=== PATIENT | female | born 1975 | race Caucasian/White ===

== ENCOUNTER 2021-04-11 07:33 | Inpatient (IN) | payer MEDICARE, MEDICAID, SELFPAY ==
[2021-04-11 07:46] VITALS: BMI 21.9
[2021-04-11] MEDS: baclofen 10 mg Tablet PO (10:58)
[2021-04-11] MEDS: lurasidone 20 mg Tablet PO (10:58)
[2021-04-11] MEDS: spironolactone 25 mg Tablet PO (10:58)
[2021-04-11] MEDS: fluoxetine 20 mg Capsule 40 MG PO (10:58)
[2021-04-11] MEDS: lisinopril 20 mg Tablet PO (10:58)
[2021-04-11] MEDS: dicyclomine 20 mg Tablet PO ×2 (10:58→17:11)
[2021-04-11] MEDS: levothyroxine 100 mcg Tablet PO (10:58)
[2021-04-11] MEDS: prochlorperazine 10 mg Tablet PO ×2 (11:09→17:11)
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
[2021-04-11] MEDS: acetaminophen 325 mg Tablet 650 MG PO ×2 (12:32→18:22)
[2021-04-11 14:00] VITALS: BP 97/65; PULSE 84; RESP 18; TEMP 36.7; O2SAT 95
[2021-04-11] MEDS: nicotine 2 mg Gum BUCCAL ×3 (17:11→20:58)
[2021-04-11] MEDS: blistex lip oint 7 gm Tube 1 APPLIC TOPICAL (17:12)
[2021-04-11] MEDS: lurasidone 20 mg Tablet 40 MG PO (17:12)
[2021-04-11] MEDS: LIPASE PROTEASE AMYLASE 1 EACH PO ×2 (17:25→21:00)
[2021-04-11] MEDS: TRAMadol 50 mg Tablet PO (19:56)
[2021-04-11] MEDS: ondansetron 4 MG Tablet PO (21:00)
[2021-04-11] MEDS: trazodone 50 mg Tablet PO (21:04)
[2021-04-11] MEDS: OLANZapine 5 mg ODT PO (21:04)
[2021-04-11] MEDS: LORazepam 2 mg/mL INJ 1 mL IM (21:51)
[2021-04-11] MEDS: diphenhydrAMINE 50 mg/mL SDV 1mL IM (21:53)
[2021-04-11] MEDS: haloperidol inj 5 mg/mL INJ 1 mL IM (21:53)
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
[2021-04-11 22:00] VITALS: BP 122/80; PULSE 86; RESP 18; TEMP 37; O2SAT 95
--- NOTE | 2021-04-12 00:55 | PC.NURSE ---
Waste late entry 0058 Handed medication to pt and pt dropped the pill!! Wasted 5mg of Zyprexa Zydis.
--- NOTE | 2021-04-12 01:51 | PC.NURSE ---
PRN late entry 19:56 Administered Tramadol 50mg for pt c/o pain in right arm, will continue to monitor pt until end of my shift. 20:30 Followup Pt was very agitated and stated that her pain wasn't touched by the medication. Pt received a B52 shortly after this due to increased agression and escalating behaviors. Will continue to monitor pt until the end of my shift.
[2021-04-12] MEDS: TRAMadol 50 mg Tablet PO ×2 (04:09→11:32)
[2021-04-12] MEDS: hyDROXYzine 25 mg Capsule 50 MG PO ×2 (04:10→14:34)
--- NOTE | 2021-04-12 04:40 | PC.NURSE ---
PRN 04:10 Administered Tramadol 50mg pt c/o pain in arm of 10, will continue to monitor pt until end of shift. 04:09 Administered Vistaril 50mg pt was anxious, will continue to monitor pt until end of shift. 04:39 Followup on both PRN MEDS, pt is sleeping in room, will continue to monitor pt until end of shift.
[2021-04-12 06:00] VITALS: RESP 16
[2021-04-12] MEDS: nicotine 2 mg Gum BUCCAL ×5 (06:43→18:03)
[2021-04-12] MEDS: lisinopril 20 mg Tablet PO (09:40)
[2021-04-12] MEDS: LIPASE PROTEASE AMYLASE 1 EACH PO ×3 (09:40→16:56)
[2021-04-12] MEDS: levothyroxine 100 mcg Tablet PO (09:40)
[2021-04-12] MEDS: acetaminophen 325 mg Tablet 650 MG PO (09:41)
[2021-04-12] MEDS: fluoxetine 20 mg Capsule 40 MG PO (09:42)
[2021-04-12] MEDS: spironolactone 25 mg Tablet PO (09:42)
[2021-04-12] MEDS: dicyclomine 20 mg Tablet PO ×2 (09:42→17:00)
[2021-04-12] MEDS: baclofen 10 mg Tablet PO (09:42)
[2021-04-12] MEDS: prochlorperazine 10 mg Tablet PO ×2 (09:42→17:00)
--- NOTE | 2021-04-12 12:40 | PM.NPN ---
Mental Status Exam MSE Comments: Lying in her bed but eventually sits up for interview, calm, polite, interactive, wearing hospital scrubs, good eye contact Psychomotor activity is neither increased nor decreased, no agitation Speech is much more organized today, normal rate, normal volume, fair articulation, not pressured I feel okay, full range of affect, not labile Alert and oriented to person, type of place Memory and concentration are somewhat improved, occasionally requires redirection during interview Intellectual functioning appears to be average based on vocabulary Thought process, much more organized, linear, no flight of ideas Thought content, does not communicate any mormon themed delusions but continues to have some overvalued ideas, no hallucinations, no suicidal or homicidal ideation Insight and judgment appear to be limited Vitals/I&O/Wt Last Vital Signs Temp 98.6 F 04/11/21 22:00 Pulse 86 04/11/21 22:00 Resp 16 04/12/21 06:00 BP 122/80 04/11/21 22:00 Pulse Ox 95 04/11/21 22:00 Weight last 48 hrs Weight 58.06 kg A&P Assessment and plan (1) Psychotic disorder: Status: Acute Qualifiers: Psychosis type: unspecified psychosis type Qualified Code(s): F29 - Unspecified psychosis not due to a substance or known physiological condition Additional A&P Information Appears to have much more organization in her thoughts today but continues to have some overvalued ideas, mormon theme ideation, denies any mood symptoms, denies any suicidal ideation INCREASE to lurasidone 60 mg daily targeting psychotic symptoms, mood Involuntary Hold Information 96 Hour Hold: 96 Hour Involuntary Admission: No Attestations NPU Medical Necessity Statement*: Continues to require psychiatric hospitalization for medication stabilization, coordination for safe discharge Coding Level of Care Code Acute Configuration Management Architect for [facility] Fwd Diagnoses Psychotic disorder F29 Psychosis type: unspecified psychosis type
[2021-04-12 14:00] VITALS: BP 122/80; PULSE 86; RESP 16; TEMP 37; O2SAT 95
[2021-04-12] MEDS: OLANZapine 5 mg ODT PO (16:02)
[2021-04-12] MEDS: ondansetron 4 MG Tablet PO (16:55)
[2021-04-12] MEDS: simethicone 80 mg Chew PO (16:55)
[2021-04-12] MEDS: lurasidone 20 mg Tablet 60 MG PO (16:57)
[2021-04-12] MEDS: diphenhydrAMINE 50 mg/mL SDV 1mL IM (17:36)
[2021-04-12] MEDS: LORazepam 2 mg/mL INJ 1 mL IM (17:37)
[2021-04-12] MEDS: haloperidol inj 5 mg/mL INJ 1 mL IM (17:37)
[2021-04-12 18:52] VITALS: BP 91/64; PULSE 92; RESP 18; TEMP 36.5; O2SAT 98
[2021-04-12 21:26] VITALS: RESP 16
[2021-04-13] MEDS: TRAMadol 50 mg Tablet PO ×3 (05:34→17:44)
[2021-04-13 06:00] VITALS: BP 111/74; PULSE 83; RESP 18; TEMP 37.2; O2SAT 95
--- NOTE | 2021-04-13 07:12 | PC.NURSE ---
prn 0534 Administered Tramadol 50mg for c/o pain, will continue to monitor 601 follow up with pt and no change in pain level
[2021-04-13] MEDS: dicyclomine 20 mg Tablet PO ×2 (08:29→19:37)
[2021-04-13] MEDS: baclofen 10 mg Tablet PO (08:29)
[2021-04-13] MEDS: fluoxetine 20 mg Capsule 40 MG PO (08:29)
[2021-04-13] MEDS: spironolactone 25 mg Tablet PO (08:29)
[2021-04-13] MEDS: prochlorperazine 10 mg Tablet PO ×2 (08:29→19:37)
[2021-04-13] MEDS: LIPASE PROTEASE AMYLASE 1 EACH PO ×4 (08:29→19:37)
[2021-04-13] MEDS: levothyroxine 100 mcg Tablet PO (08:29)
[2021-04-13] MEDS: lisinopril 20 mg Tablet PO (08:29)
[2021-04-13] MEDS: nicotine 2 mg Gum BUCCAL ×4 (08:50→17:43)
--- NOTE | 2021-04-13 12:13 | P.PN_ITS ---
Subjective NPU Subjective: Interval history: Patient continues to make bizarre statements at times but is much more organized Denies any interval mood symptoms, denies any depressed symptoms, denies any suicidal ideation Denies any auditory or visual hallucinations Continues to be compliant with medication, denies any medication side effects Mental Status Exam MSE Comments: Standing next to nurses station, somewhat odd behavior intermittently smiling inappropriately and making bizarre statements but polite and cooperative with interview, good eye contact Psychomotor activity is neither increased nor decreased, no agitation Speech is normal rate, normal volume, fair articulation, not pressured I feel good, full range of affect, smiles inappropriately at times during interview, not labile Alert and oriented to person, type of place Memory and concentration are somewhat improved, occasionally requires redirection during interview Thought process, more organized, linear, no flight of ideas Thought content, occasional delusional statements, does not appear to be attending to any internal stimuli, no suicidal or homicidal ideation Insight and judgment appear to be limited Vitals/I&O/Wt Last Vital Signs Temp 99.0 F 04/13/21 06:00 Pulse 83 04/13/21 06:00 Resp 18 04/13/21 06:00 BP 111/74 04/13/21 06:00 Pulse Ox 95 04/13/21 06:00 A&P Assessment and plan (1) Psychotic disorder: Status: Acute Qualifiers: Psychosis type: unspecified psychosis type Qualified Code(s): F29 - Unspecified psychosis not due to a substance or known physiological condition Additional A&P Information More organized, improving CONTINUE current medication, continue to monitor Involuntary Hold Information 96 Hour Hold: 96 Hour Involuntary Admission: No Attestations NPU Medical Necessity Statement*: Continues to require psychiatric hospitalization for psychosis, medication stabilization Coding Level of Care Code Acute Optical Glass Sawyer for [facility] [place] Diagnoses Psychotic disorder F29 Psychosis type: unspecified psychosis type
[2021-04-13 14:00] VITALS: BP 125/78; PULSE 88; RESP 17; TEMP 37.1; O2SAT 96
[2021-04-13] MEDS: OLANZapine 5 mg ODT PO (15:51)
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
[2021-04-13] MEDS: lurasidone 20 mg Tablet 60 MG PO (16:29)
[2021-04-13] MEDS: mirtazapine 15 mg Tablet PO (19:37)
[2021-04-13 20:00] VITALS: BP 105/77; PULSE 89; RESP 16; TEMP 36.8; O2SAT 99
[2021-04-13] MEDS: acetaminophen 325 mg Tablet 650 MG PO (23:48)
[2021-04-14] MEDS: nicotine 2 mg Gum BUCCAL ×6 (05:00→23:01)
[2021-04-14 06:00] VITALS: BP 86/58; PULSE 76; RESP 18; TEMP 36.4; O2SAT 96
[2021-04-14] MEDS: lisinopril 20 mg Tablet PO (07:58)
[2021-04-14] MEDS: baclofen 10 mg Tablet PO (07:58)
[2021-04-14] MEDS: fluoxetine 20 mg Capsule 40 MG PO (07:58)
[2021-04-14] MEDS: levothyroxine 100 mcg Tablet PO (07:59)
[2021-04-14] MEDS: dicyclomine 20 mg Tablet PO ×2 (07:59→19:51)
[2021-04-14] MEDS: spironolactone 25 mg Tablet PO (07:59)
[2021-04-14] MEDS: LIPASE PROTEASE AMYLASE 1 EACH PO ×4 (08:00→19:51)
[2021-04-14] MEDS: prochlorperazine 10 mg Tablet PO ×2 (08:03→19:50)
[2021-04-14] MEDS: TRAMadol 50 mg Tablet PO ×2 (08:03→20:30)
[2021-04-14] MEDS: OLANZapine 5 mg ODT PO ×2 (12:13→23:17)
--- NOTE | 2021-04-14 12:13 | PM.NPN ---
Subjective NPU Subjective: Interval history: Patient not demonstrating any sustained euphoric or elevated mood but continues to laugh inappropriately while making congregational themed statements and gestures towards the ceiling Patient wonders up and down hallways making nonsensical statements Denies any mood symptoms, denies any depressed symptoms, denies any suicidal ideation Denies any auditory or visual hallucinations Compliant with medication, denies any medication side effects Reports having a good appetite Mental Status Exam MSE Comments: Patient intermittently sitting on her bed then standing and making gestures towards the ceiling with congregational themed statements, requires frequent redirection but is cooperative with interview for brief periods, fair eye contact, laughing inappropriately Psychomotor activity is neither increased nor decreased, no agitation Speech is normal rate, normal volume, fair articulation, not pressured I feel great, full range of affect, smiles and laughs inappropriately at times during interview, not labile Alert and oriented to person, type of place Memory and concentration are somewhat improved, occasionally requires redirection during interview Thought process, disorganized, circumstantial and occasionally tangential requiring redirection, no flight of ideas Thought content, delusional statements, does not appear to be attending to any internal stimuli, no suicidal or homicidal ideation Insight and judgment appear to be limited Vitals/I&O/Wt Last Vital Signs Temp 97.5 F L 04/14/21 06:00 Pulse 76 04/14/21 06:00 Resp 18 04/14/21 06:00 BP 86/58 04/14/21 06:00 Pulse Ox 96 04/14/21 06:00 A&P Assessment and plan (1) Psychotic disorder: Status: Acute Qualifiers: Psychosis type: unspecified psychosis type Qualified Code(s): F29 - Unspecified psychosis not due to a substance or known physiological condition Additional A&P Information Patient continues to be disorganized in thoughts, congregational theme delusions INCREASE to lurasidone 80 mg every evening with food targeting psychotic symptoms Involuntary Hold Information 96 Hour Hold: 96 Hour Involuntary Admission: No Attestations NPU Medical Necessity Statement*: Continues to require psychiatric hospitalization for medication stabilization, coordination for safe discharge Coding Level of Care Code Acute Line Crew Supervisor for [facility]odeaux Diagnoses Psychotic disorder F29 Psychosis type: unspecified psychosis type
--- NOTE | 2021-04-14 12:15 | PC.NURSE ---
Addendum entered by Stephanie Swanson LPN 04/14/21 14:24: prn med not yet effective pt cont to be agitated at times, intrusive with staff and other patients, staff has to redirect often Original Note: PRN ZYPREXA ZYDIS 5 MG GIVEN PO PER PT C/O PSYCHOSIS/AGITATION. PT VOICE ESCALATING AT THE DESK, GETTING INTO OTHER PATIENT'S PERSONAL SPACE, WALKED UP TO AND GOT IN THE FACE OF ANOTHER FEMALE PATIENT, CALLING HER A CHICKEN. STAFF ATTEMPTS TO REDIRECT WITH LITTLE SUCCESS. WILL CONT TO MONITOR
[2021-04-14 14:00] VITALS: BP 127/84; PULSE 94; RESP 17; TEMP 36.2; O2SAT 97
[2021-04-14] MEDS: lurasidone 80 mg Tablet PO (16:33)
[2021-04-14] MEDS: haloperidol 5 mg Tablet PO (17:56)
[2021-04-14] MEDS: hyDROXYzine 25 mg Capsule 50 MG PO (17:56)
--- NOTE | 2021-04-14 17:56 | PC.NURSE ---
PRN Haldol and Vistaril Patient continues to yell out confucianist comments, nonsensical speaking. Patient continuously pressing the call light, code blue light, and emergency button. Upon entering to check on patient and cancel lights, patient blocked the exit and would not allow this nurse to leave room. Patient asking when she can be discharged, patient instructed to ask physician tomorrow. Patient then rolled her eyes and became confrontational. This nurse alerted CHERRIE Brown who entered room. Patient then moved out of doorway for this nurse to exit. Patient then offered medication to help relax and patient agreed. Patient given 5mg PO Haldol and 50mg PO Vistaril. Will monitor for effectiveness.
[2021-04-14 19:21] VITALS: BP 135/86; PULSE 84; RESP 24; TEMP 37.1; O2SAT 93
[2021-04-14] MEDS: trazodone 50 mg Tablet PO (19:51)
[2021-04-14] MEDS: mirtazapine 15 mg Tablet PO (19:51)
[2021-04-14] MEDS: docusate sodium 100 mg Capsule PO (19:51)
--- NOTE | 2021-04-14 20:00 | PC.NURSE ---
PT REQUESTING SLEEPING PILL , TRAZODONE 50MG PO GIVEN WITH NIGHT MEDS.
[2021-04-14] MEDS: acetaminophen 325 mg Tablet 650 MG PO (23:00)
[2021-04-14] MEDS: simethicone 80 mg Chew PO (23:23)
--- NOTE | 2021-04-14 23:24 | PC.NURSE ---
PT CAME TO THE DESK REQUESTING SOMETHING FOR HER ACID REFLUX, MILOCON TAB GIVEN. PT UP PACING IN HALLWAY, CONFUSED.
--- NOTE | 2021-04-14 23:27 | PC.NURSE ---
ZYPREXA 5MG PO GIVEN TO PT FOR NOTED INCREASED DELUSIONS AND ANXIETY.
--- NOTE | 2021-04-15 01:00 | PC.NURSE ---
PT FINALLY RESTING QUIETLY WITH BOTH EYES CLOSED, SNORING.
[2021-04-15] MEDS: ondansetron 4 MG Tablet PO (01:52)
--- NOTE | 2021-04-15 01:56 | PC.NURSE ---
Patient is up walking back and forth between her room and the nurses station asking for medications for her acid reflux. Medication given per patient request. Patient has returned to her room at this time.
--- NOTE | 2021-04-15 01:59 | PC.NURSE ---
Patient at the nurses station requesting bathing products so that she can take a shower. Patient is pleasant with nursing staff.
[2021-04-15] MEDS: haloperidol 5 mg Tablet PO (02:28)
[2021-04-15] MEDS: hyDROXYzine 25 mg Capsule 50 MG PO (02:28)
--- NOTE | 2021-04-15 02:28 | PC.NURSE ---
Patient at the nurses station asking for more medication. Patient has requested multiple times for gas reflux medication.
[2021-04-15] MEDS: TRAMadol 50 mg Tablet PO ×3 (02:41→20:33)
[2021-04-15 06:00] VITALS: BP 94/59; PULSE 80; RESP 17; TEMP 36.8; O2SAT 95
[2021-04-15] MEDS: LIPASE PROTEASE AMYLASE 1 EACH PO ×4 (07:38→20:34)
[2021-04-15] MEDS: levothyroxine 100 mcg Tablet PO (07:38)
[2021-04-15] MEDS: baclofen 10 mg Tablet PO (07:39)
[2021-04-15] MEDS: lisinopril 20 mg Tablet PO (07:39)
[2021-04-15] MEDS: spironolactone 25 mg Tablet PO (07:39)
[2021-04-15] MEDS: prochlorperazine 10 mg Tablet PO ×2 (07:39→20:35)
[2021-04-15] MEDS: dicyclomine 20 mg Tablet PO ×2 (07:40→20:33)
[2021-04-15] MEDS: fluoxetine 20 mg Capsule 40 MG PO (07:40)
[2021-04-15] MEDS: nicotine 2 mg Gum BUCCAL ×2 (10:28→12:32)
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
[2021-04-15 14:00] VITALS: BP 96/68; PULSE 90; RESP 18; TEMP 37.2; O2SAT 97
[2021-04-15] MEDS: OLANZapine 5 mg ODT PO (15:14)
--- NOTE | 2021-04-15 15:14 | PC.NURSE ---
PRN ZYPREXA ZYDIS 5 MG GIVEN PO PER PT C/O STATED AGITATION. PT PACING HALLWAYS, ARMS CROSSED, IRRITABLE AFFECT NOTED. WILL CONT TO MONITOR
[2021-04-15] MEDS: lurasidone 80 mg Tablet 120 MG PO (16:33)
[2021-04-15 20:27] VITALS: BP 114/79; PULSE 92; RESP 17; TEMP 36.8; O2SAT 97
[2021-04-15] MEDS: mirtazapine 15 mg Tablet PO (20:34)
--- NOTE | 2021-04-15 20:43 | PC.NURSE ---
Patient resting in her room at this time. Patient has been cooperative with nursing staff.
[2021-04-16] MEDS: acetaminophen 325 mg Tablet 650 MG PO ×2 (01:11→20:49)
--- NOTE | 2021-04-16 01:12 | PC.NURSE ---
PRN Tylenol Patient ambulated to the nurses station requesting medication for her muscle aches. Patient explained muscle aches 2/10 on pain scale. PRN Tylenol administered. Patient tolerated well and returned to her room.
[2021-04-16] MEDS: TRAMadol 50 mg Tablet PO ×3 (03:20→16:21)
[2021-04-16 06:00] VITALS: BP 102/68; PULSE 87; RESP 18; TEMP 36.8; O2SAT 96
[2021-04-16] MEDS: LIPASE PROTEASE AMYLASE 1 EACH PO ×4 (08:26→20:40)
[2021-04-16] MEDS: simethicone 80 mg Chew PO (08:27)
[2021-04-16] MEDS: docusate sodium 100 mg Capsule PO (08:27)
[2021-04-16] MEDS: fluoxetine 20 mg Capsule 40 MG PO (08:29)
[2021-04-16] MEDS: lisinopril 20 mg Tablet PO (08:30)
[2021-04-16] MEDS: dicyclomine 20 mg Tablet PO ×2 (08:30→20:49)
[2021-04-16] MEDS: baclofen 10 mg Tablet PO (08:31)
[2021-04-16] MEDS: spironolactone 25 mg Tablet PO (08:31)
[2021-04-16] MEDS: levothyroxine 100 mcg Tablet PO (08:31)
[2021-04-16] MEDS: benztropine 1 mg Tablet PO (08:31)
[2021-04-16] MEDS: prochlorperazine 10 mg Tablet PO ×2 (09:40→20:49)
--- NOTE | 2021-04-16 09:48 | PC.NURSE ---
PRN 0830 Administered Tramadol 50mg for pt c/o pain in right arm. 901 follow up, pt sitting in room no complaints
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
--- NOTE | 2021-04-16 10:30 | DCPLANNER ---
IMM not completed due to pt in NPU with confusion.
[2021-04-16 14:00] VITALS: BP 99/76; PULSE 72; RESP 18; TEMP 36.8; O2SAT 97
[2021-04-16] MEDS: lurasidone 80 mg Tablet 120 MG PO (16:17)
--- NOTE | 2021-04-16 16:31 | PC.NURSE ---
prn 1621 Administered Tramadol 50mg for pt c/o of pain, will continue to monitor pt until the end of my shift.
[2021-04-16] MEDS: OLANZapine 10 mg TABLET PO (16:50)
[2021-04-16] MEDS: hyDROXYzine 25 mg Capsule 50 MG PO (20:41)
--- NOTE | 2021-04-16 20:50 | PC.NURSE ---
PRN MEDICATIONS: PATIENT WAS COMPLAINING OF RIGHT FOOT PAIN WHILE PACING THE HALLS. PATIENT IS MAKING JUDAISM STATEMENTS CONSTANTLY. STAFF GAVE PRN VISTARIL AND TYLENOL. PATIENT TOOK MEDICATIONS WITH NO ISSUES AND CONTINUED TO AMBULATE THE KUHN.
[2021-04-16 21:30] VITALS: BP 120/74; PULSE 108; RESP 24; TEMP 36.6; O2SAT 94
[2021-04-16] MEDS: mirtazapine 15 mg Tablet PO (21:42)
[2021-04-17] MEDS: TRAMadol 50 mg Tablet PO (01:11)
[2021-04-17] MEDS: OLANZapine 5 mg ODT PO ×2 (01:12→14:36)
--- NOTE | 2021-04-17 01:15 | PC.NURSE ---
PRN MEDICATION: PATIENT WAS COMPLAINING OF PAIN IN RIGHT ELBOW AND AGAIN IN THE FOOT. PATIENT IS ALSO ANXIOUSLY PACING UP AND DOWN THE HALLWAY STOPPING AT NURSES STATION WINDOW AND PREACHING TO STAFF . PATIENT CONTINUES TO GO IN AND OUT OF ROOMS OTHER THAN HER OWN STRIPPING BEDS AND REMOVING LINENS AND PILLOWS. STAFF HAS REDIRECTED MULTIPLE TIMES WITH NO SUCCESS. THIS NURSE ADMINISTERED ZYPREXA TO HELP WITH HER HALLUCINATIONS AND DELUSIONS THAT SHE STATES IS MESSAGES FROM GOD THAT SHE MUST SHARE WITH STAFF, AND [facility] AND [facility] WAS GIVEN TO HELP WITH THE PAIN IN HER ELBOW AND FOOT. THIS NURSE WILL CONTINUE TO MONITOR UNTIL THE END OF MY SHIFT.
[2021-04-17] MEDS: haloperidol 5 mg Tablet PO (01:31)
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
[2021-04-17] MEDS: simethicone 80 mg Chew PO (02:38)
--- NOTE | 2021-04-17 03:58 | PC.NURSE ---
PRN MEDICATION: PATIENT WAS COMPLAINING OF PAIN IN RIGHT ELBOW AND AGAIN IN THE FOOT. PATIENT IS ALSO ANXIOUSLY PACING UP AND DOWN THE HALLWAY STOPPING AT NURSES STATION WINDOW AND PREACHING TO STAFF . PATIENT CONTINUES TO GO IN AND OUT OF ROOMS OTHER THAN HER OWN STRIPPING BEDS AND REMOVING LINENS AND PILLOWS. STAFF HAS REDIRECTED MULTIPLE TIMES WITH NO SUCCESS. THIS NURSE ADMINISTERED ZYPREXA TO HELP WITH HER HALLUCINATIONS AND DELUSIONS THAT SHE STATES IS MESSAGES FROM GOD THAT SHE MUST SHARE WITH STAFF, AND [facility] AND [facility] WAS GIVEN TO HELP WITH THE PAIN IN HER ELBOW AND FOOT. THIS NURSE WILL CONTINUE TO MONITOR UNTIL THE END OF MY SHIFT.
--- NOTE | 2021-04-17 04:10 | PC.NURSE ---
PATIENT UPDATE: PATIENT CONTINUES TO GO IN AND OUT OF ROOMS DOWN KUHN. HAS BEEN REDIRECTED MULTIPLE TIMES THAT SHE CAN NOT GO INTO OTHER PATIENTS ROOMS WELL NEEDS TO STAY OUT OF THE EMPTY ROOMS DUE TO HER UNMAKING THE BEDS. PATIENT CONTINUES TO PACE UP AND DOWN HALLWAY WHILE ATTEMPTING TO RECITE BIBLE VERSES AND DELIVER THE WORD OF GOD. PATIENT HAS ASKED TO USE THE PHONE AFTER HOURS TO CALL HER GIRLFRIEND AND WAS EDUCATED ON PHONE HOURS AND TOLD SHE WOULD BE ABLE TO MAKE PHONE CALL DURING APPROVED TIMES FOR PHONE USE. PATIENT ARGUED WITH STAFF THAT FRIEND WAS AWAKE AND WOULD NOT BE BUGGED BY A CALL AT 0400. STAFF REITERATED PHONE RULES AND ASKED PATIENT TO RETIRE TO HER ROOM AND ATTEMPT TO REST. PATIENT STATED SHE WANTED THE DOCTOR CALLED TO GET HER A SWEATER. WHEN TOLD THAT WE DO NOT CALL THE DOCTOR TO ASK HIM TO PURCHASE HER A SWEATER. SHE CONTINUES TO WALK HALLWAY WITH A BLANKET AROUND HER EVEN WHEN STATING SHE IS NOT COLD.
[2021-04-17 06:00] VITALS: BP 137/94; PULSE 97; RESP 20; TEMP 36.9; O2SAT 99
[2021-04-17] MEDS: baclofen 10 mg Tablet PO (08:47)
[2021-04-17] MEDS: fluoxetine 20 mg Capsule 40 MG PO (08:47)
[2021-04-17] MEDS: levothyroxine 100 mcg Tablet PO (08:47)
[2021-04-17] MEDS: lisinopril 20 mg Tablet PO (08:48)
[2021-04-17] MEDS: prochlorperazine 10 mg Tablet PO ×2 (08:48→20:09)
[2021-04-17] MEDS: dicyclomine 20 mg Tablet PO ×2 (08:48→20:09)
[2021-04-17] MEDS: LIPASE PROTEASE AMYLASE 1 EACH PO ×4 (08:48→20:09)
[2021-04-17] MEDS: spironolactone 25 mg Tablet PO (08:48)
[2021-04-17] MEDS: lurasidone 80 mg Tablet 120 MG PO ×2 (09:35→16:46)
--- NOTE | 2021-04-17 13:01 | PM.NPN ---
Subjective NPU Subjective: Interval history: Continues to make nonsensical statements with synagogue themed delusions Mostly wandering unit hallway Denies any auditory or visual hallucinations Denies any suicidal ideation, denies any depressive symptoms Per staff report, concerns about not taking her Latuda after tablet was found Mental Status Exam MSE Comments: Standing in the unit hallway, disheveled, disorganized, appropriately dressed in hospital scrubs Psychomotor activity is neither increased nor decreased, no agitation Speech is normal rate although occasionally speaking in a nonsensical manner, normal volume, fair articulation, not pressured I feel great, full range of affect, not labile Alert and oriented to person, place, time, but not situation Memory and concentration are fair, occasionally requires redirection during interview Thought process, somewhat disorganized, circumstantial with looseness of associations Thought content, delusional statements, does not appear to be attending to any internal stimuli, no suicidal or homicidal ideation Insight and judgment appear to be limited Vitals/I&O/Wt Last Vital Signs Temp 98.4 F 04/17/21 06:00 Pulse 97 04/17/21 06:00 Resp 20 H 04/17/21 06:00 BP 137/94 04/17/21 06:00 Pulse Ox 99 04/17/21 06:00 A&P Assessment and plan (1) Psychotic disorder: Status: Acute Qualifiers: Psychosis type: unspecified psychosis type Qualified Code(s): F29 - Unspecified psychosis not due to a substance or known physiological condition Additional A&P Information Continues to be disorganized, concerns about not taking her medication, delusional CONTINUE current medication while observed, continue to monitor Involuntary Hold Information 96 Hour Hold: 96 Hour Involuntary Admission: No Attestations NPU Medical Necessity Statement*: Continues to require psychiatric hospitalization for medication stabilization Coding Level of Care Code Acute Health Sciences Dean for Myra Thibodeaux Diagnoses Psychotic disorder F29 Psychosis type: unspecified psychosis type
[2021-04-17 14:00] VITALS: BP 97/68; PULSE 105; RESP 18; TEMP 36.7; O2SAT 94
[2021-04-17] MEDS: acetaminophen 325 mg Tablet 650 MG PO ×2 (14:36→20:59)
[2021-04-17] MEDS: ondansetron 4 MG Tablet PO (14:36)
[2021-04-17] MEDS: nicotine 2 mg Gum BUCCAL ×2 (16:21→20:59)
--- NOTE | 2021-04-17 17:08 | PC.NURSE ---
Patient is aggravated wanting something for pain and that she needs something to help her shit . Patient has been pressing the code blue button and all other call light buttons. When nursing staff respond to patient she starts cussing stating I need something to help me shit and I am hurting and need a Morphine drip . Patient is now sitting in front of the nursing station.
[2021-04-17] MEDS: OLANZapine 10 mg ODT PO (17:37)
--- NOTE | 2021-04-17 18:31 | PC.NURSE ---
prn 1436 administered Zofran 4mg for feeling nauseous, Zyprexa 5mg for anxiety and stress, Tylenol 650mg for pain, will follow up with pt within the hour. 1506 Follow Up pt was calm and pain had subsided for now, no c/o being nauseous
--- NOTE | 2021-04-17 18:35 | PC.NURSE ---
Pt has been very needy and up at the nurses desk alot this shift, asking for several medications. Pt has been naked on two occasions this shift and asked to please wear clothing while in the hospital. Cussing at staff at times, redirected back to her room. Pt has been wandering into other pt's rooms praying loudly over them while they are sleeping, staff redirected SI back to her own room. PT has been bed hopping, just randomly changing rooms, and also torn of ID bracelet. Will continue to monitor pt.
[2021-04-17] MEDS: mirtazapine 15 mg Tablet PO (20:09)
[2021-04-17] MEDS: hyDROXYzine 25 mg Capsule 50 MG PO (20:58)
[2021-04-17 21:32] VITALS: BP 112/79; PULSE 96; RESP 18; TEMP 36.8; O2SAT 97
--- NOTE | 2021-04-17 22:12 | PC.NURSE ---
Vistaril 50 mg po given at 2057 for complaint of anxiety. At this time resting in bed.
[2021-04-18 06:00] VITALS: RESP 16
[2021-04-18] MEDS: LIPASE PROTEASE AMYLASE 1 EACH PO ×4 (07:33→21:40)
[2021-04-18] MEDS: docusate sodium 100 mg Capsule PO ×2 (08:40→21:42)
[2021-04-18] MEDS: spironolactone 25 mg Tablet PO (08:40)
[2021-04-18] MEDS: prochlorperazine 10 mg Tablet PO ×2 (08:40→21:43)
[2021-04-18] MEDS: levothyroxine 100 mcg Tablet PO (08:40)
[2021-04-18] MEDS: fluoxetine 20 mg Capsule 40 MG PO (08:40)
[2021-04-18] MEDS: dicyclomine 20 mg Tablet PO ×2 (08:40→21:43)
[2021-04-18] MEDS: lisinopril 20 mg Tablet PO (08:40)
[2021-04-18] MEDS: baclofen 10 mg Tablet PO (08:40)
--- NOTE | 2021-04-18 10:02 | DCPLANNER ---
IMM not completed with pt due to pt confusion.
[2021-04-18] MEDS: acetaminophen 325 mg Tablet 650 MG PO ×2 (10:15→19:58)
[2021-04-18] MEDS: OLANZapine 10 mg TABLET PO (10:16)
[2021-04-18] MEDS: nicotine 2 mg Gum BUCCAL ×3 (11:23→19:59)
--- NOTE | 2021-04-18 11:47 | P.PN_ITS ---
Subjective NPU Subjective: Interval history: Continues to have hyper baptist delusions, intrusive, wandering behavior, going into other patient's rooms Patient continues to speak nonsensically with loose associations, calling this interviewer men's golf coach. Patient was questionably compliant with medication and thought to be pocketing but reportedly has been compliant and observed while taking medication Patient denies any auditory or visual destinations Patient reports feeling great and denies any interval depressive symptoms, denies any suicidal ideation Mental Status Exam MSE Comments: Standing in the unit hallway, disheveled, disorganized, appropriately dressed in hospital scrubs Psychomotor activity is neither increased nor decreased, no agitation Speech is normal rate although occasionally speaking in a nonsensical manner, normal volume, fair articulation, not pressured I feel great, full range of affect, somewhat elevated and euphoric, not labile Alert and oriented to person, place, time, but not situation Memory and concentration are fair, occasionally requires redirection during interview Thought process, somewhat disorganized, circumstantial with looseness of associations Thought content, delusional statements, does not appear to be attending to any internal stimuli, no suicidal or homicidal ideation Insight and judgment appear to be limited Vitals/I&O/Wt Last Vital Signs Temp 98.2 F 04/17/21 21:32 Pulse 96 04/17/21 21:32 Resp 16 04/18/21 06:00 BP 112/79 04/17/21 21:32 Pulse Ox 97 04/17/21 21:32 A&P Assessment and plan (1) Psychotic disorder: Status: Acute Qualifiers: Psychosis type: unspecified psychosis type Qualified Code(s): F29 - Unspecified psychosis not due to a substance or known physiological condition Additional A&P Information Patient appears to be elevated and euphoric with nonsensical speech, hyper baptist delusions, intrusive wandering behavior with concerns about self safety and ability to care for herself. Patient does not appear to be responding to maximal dosing of Latuda and would likely benefit from trial of another antipsychotic with possible need for augmenting with a second antipsychotic. INVOLUNTARY hold initiated DISCONTINUE Latuda 120 mg daily START olanzapine 10 mg twice daily targeting mood, psychotic symptoms Continue to provide behavioral redirection for intrusive, wandering behavior Involuntary Hold Information 2 96 Hour Hold: 96 Hour Involuntary Admission: No Attestations NPU Medical Necessity Statement*: Continues to require psychiatric hospitalization for ongoing, refractory psychotic symptoms, medication stabilization Coding Level of Care Code Acute Sewing Machine Maintenance Mechanic for Myra Thibodeaux Diagnoses Psychotic disorder F29 Psychosis type: unspecified psychosis type
[2021-04-18 14:00] VITALS: TEMP 36.2
[2021-04-18] MEDS: simethicone 80 mg Chew PO (15:38)
[2021-04-18] MEDS: OLANZapine 10 mg ODT PO (15:38)
[2021-04-18] MEDS: OLANZapine 10 mg TABLET 20 MG PO (17:28)
[2021-04-18] MEDS: hyDROXYzine 25 mg Capsule 50 MG PO (19:58)
--- NOTE | 2021-04-18 19:59 | PC.NURSE ---
patient requesting something for anxiety given Vistaril 50mg.
[2021-04-18] MEDS: mirtazapine 15 mg Tablet PO (21:43)
[2021-04-18 22:00] VITALS: BP 117/76; PULSE 90; RESP 18; TEMP 36.6; O2SAT 95
[2021-04-18] MEDS: haloperidol 5 mg Tablet PO (22:05)
--- NOTE | 2021-04-18 22:05 | PC.NURSE ---
5mg Haldol given for increased agitation and increased psychosis.
--- NOTE | 2021-04-18 22:06 | PC.NURSE ---
5mg Haldol given for continued agitation and anxiousness.
[2021-04-19 06:00] VITALS: BP 121/84; PULSE 92; RESP 17; TEMP 36.7; O2SAT 97
[2021-04-19] MEDS: levothyroxine 100 mcg Tablet PO (08:14)
[2021-04-19] MEDS: dicyclomine 20 mg Tablet PO ×2 (08:39→21:16)
[2021-04-19] MEDS: prochlorperazine 10 mg Tablet PO ×2 (08:39→21:16)
[2021-04-19] MEDS: fluoxetine 20 mg Capsule 40 MG PO (08:39)
[2021-04-19] MEDS: lisinopril 20 mg Tablet PO (08:40)
[2021-04-19] MEDS: baclofen 10 mg Tablet PO (08:40)
[2021-04-19] MEDS: OLANZapine 10 mg TABLET 20 MG PO ×2 (08:40→17:22)
[2021-04-19] MEDS: spironolactone 25 mg Tablet PO (08:40)
[2021-04-19] MEDS: LIPASE PROTEASE AMYLASE 1 EACH PO ×4 (08:40→21:29)
[2021-04-19] MEDS: nicotine 2 mg Gum BUCCAL ×3 (09:39→18:46)
[2021-04-19] MEDS: OLANZapine 5 mg ODT PO ×2 (10:37→21:16)
[2021-04-19] MEDS: acetaminophen 325 mg Tablet 650 MG PO (10:37)
--- NOTE | 2021-04-19 12:36 | PM.NPN ---
Subjective NPU Subjective: Interval history: Ongoing psychotic behavior making interview difficult with persistent delusions, intrusive behavior, going into other patient's rooms She continues to speak nonsensically with loose associations but denies any interval suicidal ideation or depressive symptoms Reports tolerating medication change well, denies any medication side effects Patient denies any auditory or visual destinations Mental Status Exam MSE Comments: Standing at the nurses station, appropriately groomed and dressed, uncooperative with interview requiring multiple redirections and prompting Psychomotor activity is neither increased nor decreased, no agitation Speech is normal rate but stating nonsensical things, normal volume, fair articulation, not pressured Good, full range of affect, somewhat elevated and euphoric, not labile Alert and oriented to person, place, time, but not situation Memory and concentration are fair, occasionally requires redirection during interview Thought process, disorganized, circumstantial with looseness of associations Thought content, delusional statements, does not appear to be attending to any internal stimuli, no suicidal or homicidal ideation Insight and judgment appear to be limited Vitals/I&O/Wt Last Vital Signs Temp 98.0 F 04/19/21 06:00 Pulse 92 04/19/21 06:00 Resp 17 04/19/21 06:00 BP 121/84 04/19/21 06:00 Pulse Ox 97 04/19/21 06:00 A&P Assessment and plan (1) Psychotic disorder: Status: Acute Qualifiers: Psychosis type: unspecified psychosis type Qualified Code(s): F29 - Unspecified psychosis not due to a substance or known physiological condition Additional A&P Information Ongoing psychotic behavior, delusional, intrusive and wandering CONTINUE current medication, continue to monitor Involuntary Hold Information 96 Hour Hold: 96 Hour Involuntary Admission: No Attestations NPU Medical Necessity Statement*: Continues to require psychiatric hospitalization for medication stabilization Coding Level of Care Code Acute Radiology Specialist for [facility] Diagnoses Psychotic disorder F29 Psychosis type: unspecified psychosis type
[2021-04-19 14:00] VITALS: BP 101/68; BP 121/84; PULSE 84; PULSE 92; RESP 17; RESP 18; TEMP 35.9; TEMP 36.7; O2SAT 97; O2SAT 99
[2021-04-19] MEDS: hyDROXYzine 25 mg Capsule 50 MG PO ×2 (16:15→21:16)
[2021-04-19] MEDS: nicotine 21 mg Patch 1 PATCH TRANSDERMA (16:47)
[2021-04-19] MEDS: docusate sodium 100 mg Capsule PO (16:47)
[2021-04-19 19:41] VITALS: BP 115/80; PULSE 91; RESP 18; TEMP 36.8; O2SAT 98
--- NOTE | 2021-04-19 21:05 | PC.NURSE ---
pt given haldol 5mg po for increased anxiety.
[2021-04-19] MEDS: mirtazapine 15 mg Tablet PO (21:16)
--- NOTE | 2021-04-19 22:00 | PC.NURSE ---
pt resting quietly with both eyes closed
[2021-04-20] MEDS: nicotine 2 mg Gum BUCCAL ×4 (02:33→16:30)
[2021-04-20] MEDS: hyDROXYzine 25 mg Capsule 50 MG PO ×2 (03:39→09:49)
--- NOTE | 2021-04-20 03:40 | PC.NURSE ---
pt noted again to be up at the nurses desk, rambling about why people get , how she is related to one of the staff, and other subjects that don't make since. vistaril 50mg po given for incresed anxiety.
[2021-04-20 06:00] VITALS: RESP 15
[2021-04-20] MEDS: LIPASE PROTEASE AMYLASE 1 EACH PO ×4 (08:58→20:36)
[2021-04-20] MEDS: levothyroxine 100 mcg Tablet PO (08:58)
[2021-04-20] MEDS: spironolactone 25 mg Tablet PO (08:58)
[2021-04-20] MEDS: baclofen 10 mg Tablet PO (08:59)
[2021-04-20] MEDS: lisinopril 20 mg Tablet PO (08:59)
[2021-04-20] MEDS: OLANZapine 10 mg TABLET 20 MG PO ×2 (08:59→17:20)
[2021-04-20] MEDS: dicyclomine 20 mg Tablet PO ×2 (08:59→20:35)
[2021-04-20] MEDS: fluoxetine 20 mg Capsule 40 MG PO (08:59)
[2021-04-20] MEDS: prochlorperazine 10 mg Tablet PO ×2 (09:05→20:35)
[2021-04-20] MEDS: acetaminophen 325 mg Tablet 650 MG PO (09:40)
--- NOTE | 2021-04-20 09:45 | PC.NURSE ---
Patient received PRN Tylenol due to having increased pain in her right arm.
[2021-04-20] MEDS: OLANZapine 5 mg ODT PO ×2 (09:49→20:35)
--- NOTE | 2021-04-20 10:39 | PC.NURSE ---
Addendum entered by Melonie Nguyen RN 04/20/21 14:26: Patient resting in bed at this time. Original Note: Patient is displaying increased in aggression, anger and outbursts. Patient is demanding an endoscopy along with wanting to be transferred to an ER for abdominal/ hernia surgery. Zyprexa and Vistaril given to patient.
[2021-04-20 10:47] LABS: Basophils # 0.1 10^3/uL (0.0-0.1); Eosinophils # 0.1 10^3/uL (0.0-0.8); Eosinophils % 1.6 %; Hematocrit 34.9 % (37.0-47.0); Hemoglobin 12.6 g/dL (11.5-15.3); Lymphocytes # 2.6 10^3/uL (0.8-4.8); Lymphocytes % 29.5 %; Mean Corpuscular HGB Conc 36.1 g/dL (30.0-36.0); Mean Corpuscular Hemoglobin 31.4 pg (28.0-34.0); Mean Platelet Volume 9.3 fL (7.4-10.4); Monocytes # 0.8 10^3/uL (0.2-0.9); Monocytes % 9.4 %; Neutrophils # 5.04 10^3/uL (1.8-7.7); Neutrophils % 58.4 %; Nucleated Red Blood Cells % 0 %; Platelet Count 365 10^3/cmm (130-400); Red Blood Count 4.01 10^6/uL (4.1-5.3); Red Cell Distribution Width 12.3 % (12.1-15.1); White Blood Count 8.6 10^3/uL (4.0-10.0)
[2021-04-20 11:07] LABS: Alanine Aminotransferase 16 U/L (0-33); Albumin Level 4.7 g/dL (3.5-5.2); Alkaline Phosphatase 93 IU/L (35-105); Anion Gap 16.7 (5-19); Aspartate Amino Transferase 22 U/L (0-32); Blood Urea Nitrogen 13 mg/dL (6-20); Calcium 9.3 mg/dL (8.5-10.5); Carbon Dioxide 21 mmol/L (22-29); Chloride 86 mmol/L (98-107); Globulin 2.6 g/dL (1.3-4.6); Glomerular Filtration Rate 90.5 mL/min (90-130); Glucose 108 mg/dL (65-115); Osmolality Calculated 249 mOsm/kg (285-295); Potassium 4.7 mmol/L (3.5-5.1); Total Bilirubin 0.5 mg/dL (0.15-1.2); Total Protein 7.3 g/dL (6.6-8.7)
[2021-04-20] MEDS: nicotine 21 mg Patch 1 PATCH TRANSDERMA (11:19)
[2021-04-20 11:21] LABS: Sodium 119 mmol/L (136-145)
--- NOTE | 2021-04-20 12:03 | PM.NPN ---
Subjective NPU Subjective: Interval history: Patient continues to wander throughout the unit making nonsensical statements as well as confucianist delusions but then continues with loose associations making statements about most anything she observed on the unit or words that are used in conversations Denies any depressive symptoms, denies any suicidal ideation Denies any auditory or visual hallucinations States that her appetite is been good, reports sleeping well Mental Status Exam MSE Comments: Standing in the hallway on the unit, appropriately groomed and dressed, uncooperative, requires prompting Psychomotor activity is neither increased nor decreased, no agitation Speech is normal rate, rambling, normal volume, fair articulation, not pressured I feel great, full range of affect, expansive, not labile Alert and oriented to person, place, time, but not situation Memory and concentration are fair, occasionally requires redirection during interview Thought process, disorganized, circumstantial with looseness of associations Thought content, delusional statements, does not appear to be attending to any internal stimuli, no suicidal or homicidal ideation Insight and judgment appear to be limited Vitals/I&O/Wt Last Vital Signs Temp 98.2 F 04/19/21 19:41 Pulse 91 04/19/21 19:41 Resp 15 04/20/21 06:00 BP 115/80 04/19/21 19:41 Pulse Ox 98 04/19/21 19:41 04/19/21 04/20/21 04/20/21 22:59 06:59 14:59 Intake Total 240 / 240 Balance 240 / 240 Weight last 48 hrs Weight 58.06 kg Data NPU : 04/20/21 10:39 04/20/21 10:39 A&P Assessment and plan (1) Psychotic disorder: Status: Acute Qualifiers: Psychosis type: unspecified psychosis type Qualified Code(s): F29 - Unspecified psychosis not due to a substance or known physiological condition Additional A&P Information Patient with serum sodium of 119, noted to have serum sodium of 133 from transferring emergency department, will continue to monitor CONSULT hospitalist for evaluation, recommendations Originally ordered labs for baseline prior to starting Depakote given worsening manic behavior but will hold until after repeat labs DECREASE fluoxetine to fluoxetine 10 mg daily Involuntary Hold Information 96 Hour Hold: 96 Hour Involuntary Admission: No Attestations NPU Medical Necessity Statement*: Continues to require psychiatric hospitalization for medication stabilization Coding Level of Care Code Acute Coil Winder Hand for Chg Fwd Diagnoses Psychotic disorder F29 Psychosis type: unspecified psychosis type
[2021-04-20 12:30] LABS: Alanine Aminotransferase 16 U/L (0-33); Albumin Level 4.6 g/dL (3.5-5.2); Alkaline Phosphatase 93 IU/L (35-105); Anion Gap 17.5 (5-19); Aspartate Amino Transferase 22 U/L (0-32); Blood Urea Nitrogen 14 mg/dL (6-20); Calcium 9.5 mg/dL (8.5-10.5); Carbon Dioxide 22 mmol/L (22-29); Chloride 86 mmol/L (98-107); Globulin 2.6 g/dL (1.3-4.6); Glomerular Filtration Rate 90.5 mL/min (90-130); Glucose 107 mg/dL (65-115); Osmolality Calculated 253 mOsm/kg (285-295); Potassium 4.5 mmol/L (3.5-5.1); Sodium 121 mmol/L (136-145); Total Bilirubin 0.5 mg/dL (0.15-1.2); Total Protein 7.2 g/dL (6.6-8.7)
[2021-04-20 14:00] VITALS: BP 115/80; PULSE 101; RESP 17; TEMP 36.8; O2SAT 98
--- NOTE | 2021-04-20 17:15 | PC.NURSE ---
Patient at the nurses station requesting something for nausea and heartburn.
[2021-04-20] MEDS: ondansetron 4 MG Tablet PO (17:21)
[2021-04-20] MEDS: simethicone 80 mg Chew PO (17:21)
--- NOTE | 2021-04-20 18:19 | P.CONIM_ITS ---
Providers/Reason For Consult Consulting Physician/Specialty*: Internal medicine Reason for Consult*: Hyponatremia Attending Physician: Cyrus Calvillo DO History of Present Illness History of Present Illness 45 year old female with history of substance use disorder and longstanding psychiatric issues, hypothyroidism, hypertension, currently being managed in NPU for Psychotic disorder: Medicine was consulted as BMP showed: Serum sodium 119, noted to have serum sodium of 133 from transferring emergency department on 04/11. Upon my discussion with the patient: She is complaining of vague abdominal pain, attributing this to her, chronic pancreatitis, denies any other signs of acute hyponatremia deny, muscle cramps, dizziness, nausea, vomiting. BMP reviewed. Review of Systems Const: Denies: fever(s), chills, body aches, change in appetite or diaphoresis Card: Denies: palpitations, edema, swelling of feet/ankles, dyspnea on exertion, orthopnea or leg pain with exertion Resp: Denies: dyspnea, productive cough, wheezing or pain on inspiration : Denies: flank pain Musc: Denies: back pain, extremity pain or extremity swelling Neuro: Denies: headache(s), difficulty walking or confusion Meds/Allergies Home Medications and Allergies Home Medications Medication Instructions Recorded Confirmed Last Taken Type baclofen 10 mg PO DAILY 04/11/21 04/11/21 Unknown History dicyclomine [Bentyl] 20 mg PO BID 04/11/21 04/11/21 Unknown History fluoxetine [Prozac] 40 mg PO DAILY 04/11/21 04/11/21 Unknown History levothyroxine 100 mcg PO DAILY 04/11/21 04/11/21 Unknown History uqqtvg-mqftwtyf-bnilaqb [Creon] 1 cap PO BID 04/11/21 04/11/21 Unknown History lisinopril 20 mg PO DAILY 04/11/21 04/11/21 Unknown History lurasidone [Latuda] 20 mg PO DAILY 04/11/21 04/11/21 Unknown History mirtazapine [Remeron] 15 mg PO DAILY 04/11/21 04/11/21 Unknown History mupirocin [Bactroban] 1 applic TOPICAL BID 04/11/21 04/11/21 Unknown History prochlorperazine maleate 10 mg PO BID 04/11/21 04/11/21 Unknown History [Compazine] simethicone [Gas-X] 80 mg PO DAILY PRN 04/11/21 04/11/21 Unknown History spironolactone 25 mg PO DAILY 04/11/21 04/11/21 Unknown History trazodone 100 mg PO DIRECTED 04/11/21 04/11/21 Unknown History Allergies Allergy/AdvReac Type Severity Reaction Status Date / Time cat dander Allergy Unknown Verified 04/11/21 10:14 gabapentin Allergy Unknown Verified 04/11/21 10:14 pregabalin Allergy Unknown Verified 04/11/21 10:14 Sulfa (Sulfonamide Allergy Unknown Verified 04/11/21 10:13 Antibiotics) Current Medications Current Medications Generic Name Dose Route Start Last Admin Trade Name Freq PRN Reason Stop Dose Admin Acetaminophen 650 mg 04/11/21 09:00 04/20/21 09:40 Acetaminophen 325 Mg Tablet PO 650 mg Q4H PRN Administration MILD PAIN Baclofen 10 mg 04/11/21 11:30 04/20/21 08:59 Baclofen 10 Mg Tablet PO 10 mg DAILY JOSÉ ANTONIO Administration Benztropine Mesylate 1 mg 04/11/21 09:00 04/16/21 08:31 Benztropine 1 Mg Tablet PO 1 mg BID PRN Administration Mild Extrapyramidal symptoms Camphor/Menthol/Phenol 1 applic 04/11/21 09:00 04/11/21 17:12 Blistex Lip Oint 7 Gm Tube TOPICAL 1 applic Q1H PRN Administration DRYNESS Dicyclomine HCl 20 mg 04/13/21 21:00 04/20/21 08:59 Dicyclomine 20 Mg Tablet PO 20 mg 0900,2100 JOSÉ ANTONIO Administration Diphenhydramine HCl 50 mg 04/11/21 09:00 04/11/21 21:53 Diphenhydramine 50 Mg/Ml Sdv 1ml IM 50 mg ONCE PRN Administration Severe Extrapyramidal Symptoms Diphenhydramine HCl 50 mg 04/11/21 09:00 04/12/21 17:36 Diphenhydramine 50 Mg/Ml Sdv 1ml IM 50 mg Q4H PRN Administration Severe Aggression Docusate Sodium 100 mg 04/14/21 19:38 04/19/21 16:47 Docusate Sodium 100 Mg Capsule PO 100 mg BID PRN Administration CONSTIPATION Haloperidol 5 mg 04/11/21 09:00 04/18/21 22:05 Haloperidol 5 Mg Tablet PO 5 mg Q4H PRN Administration AGITATION Haloperidol Lactate 5 mg 04/11/21 09:00 04/12/21 17:37 Haloperidol Inj 5 Mg/Ml Inj 1 Ml IM 5 mg Q4H PRN Administration Severe Aggression Hydroxyzine Pamoate 50 mg 04/11/21 09:00 04/20/21 09:49 Hydroxyzine 25 Mg Capsule PO 50 mg Q6H PRN Administration ANXIETY Levothyroxine Sodium 100 mcg 04/11/21 11:30 04/20/21 08:58 Levothyroxine 100 Mcg Tablet PO 100 mcg DAILY JOSÉ ANTONIO Administration Lisinopril 20 mg 04/11/21 11:30 04/20/21 08:59 Lisinopril 20 Mg Tablet PO 20 mg DAILY JOSÉ ANTONIO Administration Mirtazapine 15 mg 04/11/21 21:00 04/19/21 21:16 Mirtazapine 15 Mg Tablet PO 15 mg BEDTIME JOSÉ ANTONIO Administration Nicotine 1 patch 04/11/21 09:00 04/20/21 11:19 Nicotine 21 Mg Patch TRANSDERMA 1 patch DAILY PRN Administration NICOTINE WITHDRAWAL Nicotine Polacrilex 2 mg 04/11/21 09:00 04/20/21 16:30 Nicotine 2 Mg Gum BUCCAL 2 mg Q2H PRN Administration NICOTINE WITHDRAWAL Non-Formulary Medication 1 cap 04/11/21 17:00 04/20/21 17:20 Gocciw-Cnsvunea-Koqjmzy [Creon] PO 1 cap QID JOSÉ ANTONIO Administration Olanzapine 5 mg 04/11/21 09:00 04/20/21 09:49 Olanzapine 5 Mg Odt PO 5 mg Q4H PRN Administration Agitation/Psychosis Olanzapine 20 mg 04/18/21 18:00 04/20/21 17:20 Olanzapine 10 Mg Tablet PO 20 mg BID JOSÉ ANTONIO Administration Ondansetron HCl 4 mg 04/11/21 09:00 04/20/21 17:21 Ondansetron 4 Mg Tablet PO 4 mg Q6H PRN Administration NAUSEA AND VOMITING Prochlorperazine 10 mg 04/13/21 21:00 04/20/21 09:05 Prochlorperazine 10 Mg Tablet PO 10 mg 0900,2100 JOSÉ ANTONIO Administration Simethicone 80 mg 04/11/21 09:21 04/20/21 17:21 Simethicone 80 Mg Chew PO 80 mg DAILY PRN Administration GAS Spironolactone 25 mg 06/04/21 11:30 04/20/21 08:58 Spironolactone 25 Mg Tablet PO 25 mg DAILY JOSÉ ANTONIO Administration Vitals/I&O/Wt Last Vital Signs Temp 98.2 F 04/20/21 14:00 Pulse 101 H 04/20/21 14:00 Resp 17 04/20/21 14:00 BP 115/80 04/20/21 14:00 Pulse Ox 98 04/20/21 14:00 Weight last 48 hrs Weight 58.06 kg Physical Exam Const: COMMON NORMALS: patient oriented x3 HENMT: COMMON NORMALS: normocephalic HEAD & SCALP: normocephalic Chest: CHEST: Yes Symmetrical chest wall rise Resp: COMMON NORMALS: clear to auscultation bilaterally EFFORT & INSPECTION: Yes symmetric chest movement AUSCULTATION: clear to auscultation bilaterally Cardio: COMMON NORMALS: regular rate, regular rhythm, S1 normal heart sound present, S2 normal heart sound present, No gallops present (Cardio), No murmurs present (Cardio), No rub (Cardio) and Peripheral pulses 2+ throughout RATE: regular rate RHYTHM: regular rhythm HEART SOUNDS: S1 normal heart sound present and S2 normal heart sound present PERIPHERAL PULSES: Peripheral pulses 2+ throughout GI: COMMON NORMALS: Normal to inspection, nondistended, normoactive bowel sounds present, Soft to palpation, non-tender, No hepatosplenomegaly present and no masses AUSCULTATION: Yes normoactive bowel sounds PALPATION: Yes Soft to palpation and Yes No hepatosplenomegaly present RECTAL EXAM: deferred Extremity: COMMON NORMALS: no clubbing, cyanosis or edema and no pedal edema Neuro: COMMON NORMALS: patient oriented x3 A&P Assessment and plan (1) Hyponatremia: Euvolemic asymptomatic hyponatremia: TSH Urine electrolytes Urine osmolality serum osmolality Cortisol Pain control Continue to monitor BMP Q6 H Continue to optimize antipsychotic medication as they can be contributor to hyponatremia. Thanks for consulting medicine will continue to follow. Status: Acute (2) Psychotic disorder: Status: Acute Qualifiers: Psychosis type: unspecified psychosis type Qualified Code(s): F29 - Unspecified psychosis not due to a substance or known physiological condition Consult Attestations Medical Necessity Statement: Per primary team. Coding Level of Care Code Acute Electronic Component Processor for [facility] Fwd Exam Detailed Diagnoses Hyponatremia E87.1 Psychotic disorder F29 Psychosis type: unspecified psychosis type
--- NOTE | 2021-04-20 18:34 | PC.NURSE ---
PATIENT REQUESTING A LAXATIVE. COLACE ADMINISTERED
[2021-04-20] MEDS: docusate sodium 100 mg Capsule PO (18:35)
[2021-04-20 19:54] LABS: Alanine Aminotransferase 15 U/L (0-33); Albumin Level 4.4 g/dL (3.5-5.2); Alkaline Phosphatase 86 IU/L (35-105); Anion Gap 16.3 (5-19); Aspartate Amino Transferase 20 U/L (0-32); Blood Urea Nitrogen 17 mg/dL (6-20); Calcium 8.5 mg/dL (8.5-10.5); Carbon Dioxide 21 mmol/L (22-29); Chloride 86 mmol/L (98-107); Globulin 2.2 g/dL (1.3-4.6); Glomerular Filtration Rate 77.6 mL/min (90-130); Glucose 96 mg/dL (65-115); Osmolality Calculated 249 mOsm/kg (285-295); Potassium 4.3 mmol/L (3.5-5.1); Total Bilirubin 0.4 mg/dL (0.15-1.2); Total Protein 6.6 g/dL (6.6-8.7)
[2021-04-20 19:58] LABS: Sodium 119 mmol/L (136-145)
[2021-04-20] MEDS: mirtazapine 15 mg Tablet PO (20:35)
[2021-04-20 20:47] LABS: Add Urine Microscopic? NO; Charge for UA Resulting for Rev
[2021-04-20 20:55] VITALS: BP 111/79; PULSE 83; RESP 20; TEMP 36.7; O2SAT 98
[2021-04-20 20:56] LABS: Bilirubin Urine Neg (Negative); Blood Urine Neg (Negative); Glucose Urine UA Norm (Normal); Ketones Urine Negative (Negative); Leukocyte Esterase Urine Negative (Negative); Nitrate Urine Negative (Negative); Protein Urine Neg (Negative); Specific Gravity, Urine 1.005 (1.005-1.030); Urine Appearance Clear (CLEAR); Urine Color Straw (Yellow); Urobilinogen Urine Norm (Negative); pH Urine 6.5 (5-7)
[2021-04-20 21:08] LABS: Urine Random Sodium 23 mmol/L
--- NOTE | 2021-04-20 21:44 | PC.NURSE ---
pt given Zyprexa 5mg po with her HS schedule meds for anxiety. pt continually paces between her room to the nurses desk rambling about different conditions she allegedly has (like: I better not take INSAIDs cause it might make me bleed. I need you to make a mold of my teeth for identification purposes.) when pt is asked why she thinks she needs it, pt states: what if i'm put in a 5 gallon bucket and someone pours acid on me, or what if I'm thrown out of a plain? pt is constantly being reassured that such things will not happen here, but pt still comes up to the desk with off the wall ideations.
--- NOTE | 2021-04-20 22:52 | PC.NURSE ---
pt laying down in room at this time, calm and quiet.
--- NOTE | 2021-04-20 23:34 | PC.NURSE ---
pt resting quietly in room with both eyes closed.
[2021-04-21] MEDS: hyDROXYzine 25 mg Capsule 50 MG PO ×2 (01:20→14:03)
[2021-04-21] MEDS: haloperidol 5 mg Tablet PO (04:36)
--- NOTE | 2021-04-21 04:36 | PC.NURSE ---
pt noted with increased agitation, pacing up to the nurses desk insisting she needs her remeron & trazodone. pt advised that she was given those meds around 2034 last eduardo. pt continues to insist she needs to have her meds. Haldol 5mg po given.
[2021-04-21 08:12] LABS: Blood Urea Nitrogen 13 mg/dL (6-20); Carbon Dioxide 21 mmol/L (22-29); Chloride 84 mmol/L (98-107); Glomerular Filtration Rate 77.6 mL/min (90-130); Glucose 142 mg/dL (65-115); Osmolality Calculated 249 mOsm/kg (285-295)
[2021-04-21 08:19] LABS: Cortisol Random 14.74 ug/dL (2.47-19.5); Thyroid Stimulating Hormone 22.39 uIU/mL (0.27-4.20)
[2021-04-21] MEDS: sodium chloride 1 gm Tablet 2 GM PO (08:26)
[2021-04-21] MEDS: levothyroxine 100 mcg Tablet PO (08:27)
[2021-04-21] MEDS: prochlorperazine 10 mg Tablet PO ×2 (08:27→19:09)
[2021-04-21] MEDS: LIPASE PROTEASE AMYLASE 1 EACH PO ×3 (08:27→19:10)
[2021-04-21] MEDS: OLANZapine 10 mg TABLET 20 MG PO (08:28)
[2021-04-21] MEDS: fluoxetine 10 mg Capsule PO (08:28)
[2021-04-21] MEDS: dicyclomine 20 mg Tablet PO ×2 (08:28→19:08)
[2021-04-21] MEDS: lisinopril 20 mg Tablet PO (08:28)
[2021-04-21] MEDS: baclofen 10 mg Tablet PO (08:29)
[2021-04-21] MEDS: spironolactone 25 mg Tablet PO (08:29)
[2021-04-21 08:45] LABS: Anion Gap 17.6 (5-19); Potassium 4.6 mmol/L (3.5-5.1)
[2021-04-21 08:46] LABS: Sodium 118 mmol/L (136-145)
--- NOTE | 2021-04-21 09:01 | PC.NURSE ---
Critical Lab Lab called with a critical sodium level of [address] Calvillo was notified of level and he asked me to contact the hospitalist. I then contacted Dr. Hylton who stated a new hospitalist would be taking over Dr. Ovalles's patients and he thinks that will be Dr. Sanderson.
--- NOTE | 2021-04-21 13:24 | PM.NPN ---
Subjective NPU Subjective: Interval history: Interval serum sodium noted to be 118. Patient continues to be elevated and expansive, making nonsensical delusional statements. She denies any interval auditory or visual destinations. Denies any interval mood symptoms, denies any suicidal ideation States that she has been eating some crackers but has not been feeling as hungry. Communicates that she understands that she should not be drinking as much water and is being followed by the hospitalist. Mental Status Exam MSE Comments: Sitting up on her bed, polite, cooperative, appropriately groomed and dressed, uncooperative, requires prompting Psychomotor activity is neither increased nor decreased, no agitation Speech is normal rate, rambling, normal volume, fair articulation, not pressured I feel okay, full range of affect, expansive, not labile Alert and oriented to person, place, time, but not situation Memory and concentration are fair, occasionally requires redirection during interview Thought process, disorganized, circumstantial with looseness of associations Thought content, delusional statements, does not appear to be attending to any internal stimuli, no suicidal or homicidal ideation Insight and judgment appear to be limited Vitals/I&O/Wt Last Vital Signs Temp 98.0 F 04/20/21 20:55 Pulse 83 04/20/21 20:55 Resp 20 H 04/20/21 20:55 BP 111/79 04/20/21 20:55 Pulse Ox 98 04/20/21 20:55 Weight last 48 hrs Weight 58.06 kg Data NPU : 04/20/21 10:39 04/21/21 07:40 A&P Assessment and plan (1) Hyponatremia: Status: Acute (2) Psychotic disorder: Status: Acute Qualifiers: Psychosis type: unspecified psychosis type Qualified Code(s): F29 - Unspecified psychosis not due to a substance or known physiological condition Additional A&P Information Hyponatremia, continues to be followed by the hospitalist Appreciate recommendations DISCONTINUE olanzapine given apparent drop in serum sodium since antipsychotics which during her hospitalization START risperidone 1 mg twice daily, known to have little to no effect on serum sodium Continue to provide behavioral redirection on the unit Involuntary Hold Information 96 Hour Hold: 96 Hour Involuntary Admission: No Attestations NPU Medical Necessity Statement*: Continues to require psychiatric hospitalization for medication stabilization Coding Level of Care Code Acute Honey Extractor for Myra Thibodeaux Diagnoses Hyponatremia E87.1 Psychotic disorder F29 Psychosis type: unspecified psychosis type
[2021-04-21 14:00] VITALS: RESP 19
--- NOTE | 2021-04-21 14:03 | PM.PN ---
Subjective Subjective: Interval history: Hospital course, labs appreciated. Patient seen multiple times today. Sodium level today morning down to 118 from 119. Patient has had episodes of quique and hypomania during the day. Patient has been drinking a lot of water as per the nurse. Vitals/I&O/Wt Last Vital Signs Temp 98.0 F 04/20/21 20:55 Pulse 83 04/20/21 20:55 Resp 20 H 04/20/21 20:55 BP 111/79 04/20/21 20:55 Pulse Ox 98 04/20/21 20:55 Weight last 48 hrs Weight 58.06 kg Physical Exam Const: COMMON NORMALS: patient oriented x3 HENMT: COMMON NORMALS: normocephalic HEAD & SCALP: normocephalic Chest: CHEST: Yes Symmetrical chest wall rise Resp: COMMON NORMALS: clear to auscultation bilaterally EFFORT & INSPECTION: Yes symmetric chest movement AUSCULTATION: clear to auscultation bilaterally Cardio: COMMON NORMALS: regular rate, regular rhythm, S1 normal heart sound present, S2 normal heart sound present, No gallops present (Cardio), No murmurs present (Cardio), No rub (Cardio) and Peripheral pulses 2+ throughout RATE: regular rate RHYTHM: regular rhythm HEART SOUNDS: S1 normal heart sound present and S2 normal heart sound present PERIPHERAL PULSES: Peripheral pulses 2+ throughout GI: COMMON NORMALS: Normal to inspection, nondistended, normoactive bowel sounds present, Soft to palpation, non-tender, No hepatosplenomegaly present and no masses AUSCULTATION: Yes normoactive bowel sounds PALPATION: Yes Soft to palpation and Yes No hepatosplenomegaly present RECTAL EXAM: deferred Extremity: COMMON NORMALS: no clubbing, cyanosis or edema and no pedal edema Neuro: COMMON NORMALS: patient oriented x3 Data : 04/22/21 05:15 04/22/21 05:15 A&P Assessment and plan (1) Hyponatremia: Status: Acute (2) Psychotic disorder: Status: Acute Qualifiers: Psychosis type: unspecified psychosis type Qualified Code(s): F29 - Unspecified psychosis not due to a substance or known physiological condition (3) Hypertension: Status: Acute (4) Hypothyroidism: Status: Acute Additional A&P Information Hyponatremia: Euvolemic hyponatremia. Sodium level worsening to 118 today. Urine sodium 23 with low serum osmolality. Normal cortisol level, TSH elevated to 22. 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 Case discussed with Dr. Calvillo from psychiatry and medical reconciliation has been done accordingly. Continue with salt tablets 1 mg p.o. twice daily. Fluid restriction up to 1500 cc. Lasix 20 mg oral once. Check CMP every 12 hourly. Check lipid panel, A1c. Hypothyroidism: Most likely euthymic hypothyroidism/subclinical hypothyroidism. Check free T3, free T4. Patient does not have any other symptoms of severe hypothyroidism. For now continue home dose of levothyroxine. Cortisol levels within normal limits. Hypertension: Goal blood pressure less than 140/90 mmHg. Stop levothyroxine and spironolactone for now. We will continue to monitor and start treatment accordingly. Psychotic disorder: Treatment as per psychiatric team. Full code. Regular diet. SCDs for DVT prophylaxis. Transfer the patient to medical surgical floor for further treatment of hyponatremia. Attestations Medical Necessity Statement*: Requires further hospitalization for management of psychotic disorder, severe hyponatremia Time Spent in Patient Care: Greater than 35 minutes (>than 50% of time spent in counselling and/or direct pt care on unit). Coding Level of Care Code Acute Kit Assembler for [facility] Fwd Exam Detailed Diagnoses Hyponatremia E87.1 Psychotic disorder F29 Psychosis type: unspecified psychosis type Hypertension I10 Hypothyroidism E03.9
--- NOTE | 2021-04-21 14:03 | PC.NURSE ---
PRN VISTARIL 50 MG GIVEN PO PER PT C/O ANXIETY. PT HAS TO BE REDIRECTED SEVERAL TIMES AWAY FROM NURSES STATION, SOMATIC COMPLAINTS. WILL CONT TO MONITOR
[2021-04-21 14:25] LABS: Chol HDL Ratio 2.45 mg/dL (0.0-4.40); Cholesterol 174 mg/dL (0-200); HDL Cholesterol 71 mg/dL (60-100); LDL Cholesterol Calculated 92 mg/dL (50-129); Triglycerides 54 mg/dL (0-150); VLDL Cholestrol Calculation 11 mg/dL (0-30)
[2021-04-21 14:32] LABS: Free T4 Free Thyroxine 1.23 ng/dL (0.82-1.77); T3 Free 2.2 PG/ML (2.0-4.4)
--- NOTE | 2021-04-21 14:40 | PC.NURSE ---
refused scheduled Lasix
[2021-04-21 14:53] LABS: Estmated Average Glucose 97
--- NOTE | 2021-04-21 15:16 | PC.NURSE ---
REFUSED TO LET STAFF GET VITAL SIGNS, PT GETTING VERBALLY/PHYSICALLY AGGRESSIVE WITH STAFF/SECURITY. THREATENING STAFF GET THE HELL AWAY FROM ME, YOU AREN'T GETTING ANYTHING FROM ME
[2021-04-21] MEDS: RISPERIDONE 1 MG 2 MG PO (15:45)
--- NOTE | 2021-04-21 15:45 | PC.NURSE ---
PRN RISPERDONE M-TAB 2 MG GIVEN PO PER PT C/O INCREASED PSYCHOSIS/AGITATION/ANXIETY. PT VERY UPSET ABOUT BEING HERE ON THE UNIT, SOMATIC COMPLAINTS, REQUESTING TO LEAVE AMA, REQUESTING WE CALL HER A CAB, REQUESTING AN ENDOSCOPY, REQUESTING A FALL BRACELET, VERY TEARFUL.
[2021-04-21] MEDS: nicotine 2 mg Gum BUCCAL ×3 (17:01→23:36)
--- NOTE | 2021-04-21 17:22 | PC.NURSE ---
REFUSED SCHEDULED CREON
[2021-04-21] MEDS: simethicone 80 mg Chew PO (18:03)
[2021-04-21 18:04] VITALS: BP 107/76; PULSE 120; RESP 20; TEMP 36.8; O2SAT 97
--- NOTE | 2021-04-21 18:04 | PC.NURSE ---
prn Mylicon 80 mg chewable tablet given po per pt c/o stomach upset
[2021-04-21] MEDS: sodium chloride 1 gm Tablet PO (19:08)
[2021-04-21] MEDS: mirtazapine 15 mg Tablet PO (19:08)
[2021-04-21] MEDS: risperiDONE 1 mg Tablet PO (19:27)
[2021-04-21 20:44] LABS: Alanine Aminotransferase 15 U/L (0-33); Alkaline Phosphatase 79 IU/L (35-105); Anion Gap 15.1 (5-19); Aspartate Amino Transferase 21 U/L (0-32); Blood Urea Nitrogen 15 mg/dL (6-20); Calcium 8.3 mg/dL (8.5-10.5); Carbon Dioxide 20 mmol/L (22-29); Chloride 87 mmol/L (98-107); Globulin 2.3 g/dL (1.3-4.6); Glomerular Filtration Rate 90.5 mL/min (90-130); Glucose 97 mg/dL (65-115); Osmolality Calculated 247 mOsm/kg (285-295); Potassium 4.1 mmol/L (3.5-5.1); Total Bilirubin 0.3 mg/dL (0.15-1.2); Total Protein 6.3 g/dL (6.6-8.7)
[2021-04-21 20:46] LABS: Sodium 118 mmol/L (136-145)
[2021-04-21 22:00] VITALS: BP 105/71; PULSE 104; RESP 22; TEMP 36.8; O2SAT 97
--- NOTE | 2021-04-21 23:58 | PC.NURSE ---
Transfer orders in. called report to Alessio Chiu @ 2025. awaiting transport.
--- NOTE | 2021-04-22 00:22 | PC.NURSE ---
REPORT CALLED TO JANEY, NURSE ON MED/SURG. PT ESCORTED TO MED/SURG FLOOR VIA WHEEL CHAIR BY SECURITY AND PERSONNEL AND PAYROLL TECHNICIAN. PT'S BELONGS FROM [facility], CHART AND MEDS FROM MED ROOM SENT WITH PT. PT CONTINUES WITH CONFUSION. ALSO COMPLAINING OF I TASTE BLOOD IN THE BACK OF MY MOUTH . DR ROBISON AWARE.
--- NOTE | 2021-04-22 00:23 | PC.NURSE ---
Patient transported via WC by security and supervisor [facility] @0027
[2021-04-22 00:52] VITALS: BP 101/71; PULSE 93; RESP 20; TEMP 37; O2SAT 97
[2021-04-22] MEDS: haloperidol inj 5 mg/mL INJ 1 mL IM (01:15)
[2021-04-22] MEDS: diphenhydrAMINE 50 mg/mL SDV 1mL IM (01:15)
[2021-04-22 04:00] VITALS: BP 95/61; PULSE 88; RESP 19; TEMP 36.6; O2SAT 97
[2021-04-22] MEDS: nicotine 2 mg Gum BUCCAL ×3 (05:07→20:28)
[2021-04-22 05:34] LABS: Basophils # 0.1 10^3/uL (0.0-0.1); Basophils % 1.5 %; Eosinophils # 0.1 10^3/uL (0.0-0.8); Hematocrit 32.7 % (37.0-47.0); Hemoglobin 11.4 g/dL (11.5-15.3); Lymphocytes % 37.1 %; Mean Corpuscular HGB Conc 34.9 g/dL (30.0-36.0); Mean Corpuscular Hemoglobin 31.2 pg (28.0-34.0); Mean Corpuscular Volume 89.6 fL (81-99); Mean Platelet Volume 9.7 fL (7.4-10.4); Monocytes # 0.6 10^3/uL (0.2-0.9); Monocytes % 10.4 %; Nucleated Red Blood Cells % 0 %; Platelet Count 241 10^3/cmm (130-400); Red Blood Count 3.65 10^6/uL (4.1-5.3); Red Cell Distribution Width 12.3 % (12.1-15.1); White Blood Count 5.5 10^3/uL (4.0-10.0)
[2021-04-22 05:53] LABS: Alanine Aminotransferase 16 U/L (0-33); Albumin Level 4.3 g/dL (3.5-5.2); Alkaline Phosphatase 87 IU/L (35-105); Blood Urea Nitrogen 11 mg/dL (6-20); Calcium 8.7 mg/dL (8.5-10.5); Carbon Dioxide 19 mmol/L (22-29); Chloride 89 mmol/L (98-107); Globulin 2.1 g/dL (1.3-4.6); Glomerular Filtration Rate 90.5 mL/min (90-130); Glucose 101 mg/dL (65-115); Osmolality Calculated 252 mOsm/kg (285-295); Slide Review Slide Review Perform; Sodium 121 mmol/L (136-145); Total Bilirubin 0.5 mg/dL (0.15-1.2); Total Protein 6.4 g/dL (6.6-8.7)
[2021-04-22 05:55] LABS: Anion Gap 17.1 (5-19); Aspartate Amino Transferase 32 U/L (0-32); Potassium 4.1 mmol/L (3.5-5.1)
[2021-04-22 07:20] VITALS: BP 117/83; PULSE 88; RESP 17; TEMP 36.9; O2SAT 100
--- NOTE | 2021-04-22 09:23 | P.PN_ITS ---
Subjective Subjective: Interval history: Overnight patient was transferred to the [facility] floor for concerns of hyponatremia. Patient is advised to get IV fluids though she continues to refuse. Patient has had episodes of agitation. Sodium levels have improved to 121 with fluid restriction. Examination patient is anxious sitting up in bed, AO x3, denies any nausea, vomiting, headache. She is concerned about her pancreatitis though denies any abdominal pain or nausea and is tolerating diet well. She is concerned about her pain medications and wants the OxyContin given to her which she states she takes every day and has been prescribed to her by her doctors at [place]. She states morphine and [id number] Tylenol makes her nauseous and itch all over her body and she is allergic to the medications. She denies any dizziness, hallucinations, headaches. We also discussed that unfortunately in her case the reason for sodium levels to be low is because of excessive fluid intake along with component of SIADH which is because of the psych medications which she is on and since then the psych medications have been adjusted as per the SIADH. She verbalized understanding. She states she wants to go home at that point patient was counseled that Dr. Calvillo is her primary and he will decide regarding the psych medications and eventual discharge when patient is ready. Vitals/I&O/Wt Last Vital Signs Temp 98.5 F 04/22/21 07:20 Pulse 88 04/22/21 07:20 Resp 17 04/22/21 07:20 BP 117/83 04/22/21 07:20 Pulse Ox 100 04/22/21 07:20 04/21/21 04/22/21 04/22/21 22:59 06:59 14:59 Intake Total 0 / 0 Balance 0 / 0 Weight last 48 hrs Weight 70.579 kg Physical Exam Const: COMMON NORMALS: patient oriented x3 HENMT: COMMON NORMALS: normocephalic HEAD & SCALP: normocephalic Chest: CHEST: Yes Symmetrical chest wall rise Resp: COMMON NORMALS: clear to auscultation bilaterally EFFORT & INSPECTION: Yes symmetric chest movement AUSCULTATION: clear to auscultation bilaterally Cardio: COMMON NORMALS: regular rate, regular rhythm, S1 normal heart sound present, S2 normal heart sound present, No gallops present (Cardio), No murmurs present (Cardio), No rub (Cardio) and Peripheral pulses 2+ throughout RATE: regular rate RHYTHM: regular rhythm HEART SOUNDS: S1 normal heart sound present and S2 normal heart sound present PERIPHERAL PULSES: Peripheral pulses 2+ throughout GI: COMMON NORMALS: Normal to inspection, nondistended, normoactive bowel so unds present, Soft to palpation, non-tender, No hepatosplenomegaly present and no masses AUSCULTATION: Yes normoactive bowel sounds PALPATION: Yes Soft to palpation and Yes No hepatosplenomegaly present RECTAL EXAM: deferred Extremity: COMMON NORMALS: no clubbing, cyanosis or edema and no pedal edema Neuro: COMMON NORMALS: patient oriented x3 Data : 04/22/21 05:15 04/22/21 05:15 A&P Assessment and plan (1) Hyponatremia: Euvolemic asymptomatic hyponatremia: TSH Urine electrolytes Urine osmolality serum osmolality Cortisol Pain control Continue to monitor BMP Q6 H Continue to optimize antipsychotic medication as they can be contributor to hyponatremia. Thanks for consulting medicine will continue to follow. Status: Acute (2) Psychotic disorder: Status: Acute Qualifiers: Psychosis type: unspecified psychosis type Qualified Code(s): F29 - Unspecified psychosis not due to a substance or known physiological condition (3) Hypertension: Status: Acute (4) Hypothyroidism: Status: Acute Additional A&P Information Hyponatremia: Euvolemic hyponatremia. Improved to 121 today with fluid restriction. Urine sodium 23 with low serum osmolality. Normal cortisol level, TSH elevated to 22. 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 Case discussed with Dr. Calvillo from psychiatry and medical reconciliation has been done accordingly. Continue with salt tablets 1 mg p.o. twice daily. Fluid restriction up to 1500 cc. Check CMP daily for now. Hypothyroidism: Most likely euthymic hypothyroidism/subclinical hypothyroidism. Free T3 and free T4 within normal limits. Patient does not have any other symptoms of severe hypothyroidism. For now continue home dose of levothyroxine. Cortisol levels within normal limits. Hypertension: Goal blood pressure less than 140/90 mmHg. Stop lisinopril and spironolactone for now. We will continue to monitor and start treatment accordingly. Psychotic disorder: Treatment as per psychiatric team. Full code. Regular diet. SCDs for DVT prophylaxis. Case discussed with Dr. Calvillo and patient will be transferred back to [facility] for further treatment of psychosis. Attestations Medical Necessity Statement*: As per the primary team. Monitor sodium levels daily. Time Spent in Patient Care: Greater than 35 minutes (>than 50% of time spent in counselling and/or direct pt care on unit) . Coding Level of Care Code Acute Hand Gluer And Slicer for [facility] Fwd Exam Detailed Diagnoses Hyponatremia E87.1 Psychotic disorder F29 Psychosis type: unspecified psychosis type Hypertension I10 Hypothyroidism E03.9
[2021-04-22] MEDS: nicotine 21 mg Patch 1 PATCH TRANSDERMA (09:59)
[2021-04-22] MEDS: HYDROcodone-acetaminophen 5-325 mg Tablet 1 TAB PO ×2 (09:59→20:07)
--- NOTE | 2021-04-22 10:26 | PC.NURSE ---
report Called report to nurse in NPU. Pt refused all morning meds.
[2021-04-22 10:38] VITALS: BP 117/80; PULSE 91; RESP 18; TEMP 36.2; O2SAT 99
--- NOTE | 2021-04-22 12:05 | PM.NPN ---
Subjective NPU Subjective: Interval history: Patient was transferred early this morning to the [facility] floor to monitor for low serum sodium but was subsequently transferred back to inpatient psychiatry this morning. Patient has been much more agreeable and appropriate although occasionally intrusive She denies any interval auditory or visual hallucinations, patient occasionally says unusual things but no stated delusions during interview Patient reports that her appetite is fair but denies any nausea or headache or confusion Reports being compliant with medication and denies any medication side effects States that she had some difficulty with sleep last night Mental Status Exam MSE Comments: Sitting in the day room finishing her meal, patient is polite and cooperative, calm, appropriately groomed and dressed and asking to go home Psychomotor activity is neither increased nor decreased, no agitation Speech is normal rate, normal volume, fair articulation, not pressured I am fine, full range of affect, expansive, not labile Alert and oriented to person, place, time, but not situation Memory and concentration are fair, occasionally requires redirection during interview Thought process, much more organized this afternoon with occasional unusual comments Thought content, no stated delusions, does not appear to be attending to any internal stimuli, no suicidal or homicidal ideation Insight and judgment appear to be limited Vitals/I&O/Wt Last Vital Signs Temp 97.2 F L 04/22/21 10:38 Pulse 91 04/22/21 10:38 Resp 18 04/22/21 10:38 BP 117/80 04/22/21 10:38 Pulse Ox 99 04/22/21 10:38 04/21/21 04/22/21 04/22/21 22:59 06:59 14:59 Intake Total 0 / 0 Balance 0 / 0 Weight last 48 hrs Weight 70.579 kg Data NPU : 04/22/21 05:15 04/22/21 05:15 A&P Additional A&P Information Patient continues to be monitored by hospitalist for hyponatremia, hospitalist states that patient's hypothyroid appears to be subclinical hypothyroidism with recommendation to continue her current levothyroxine dosage. Hospitalist continues to follow with serial CMP every 12 hours Patient is much more organized today although occasionally intrusive INCREASE to risperidone 2 mg twice daily targeting mood stabilization Involuntary Hold Information 96 Hour Hold: 96 Hour Involuntary Admission: No Attestations NPU Medical Necessity Statement*: Continues to require psychiatric hospitalization for medication stabilization Coding Level of Care Code Acute Operations Program Manager for Myra Thibodeaux
[2021-04-22] MEDS: LIPASE PROTEASE AMYLASE 1 EACH PO (12:19)
[2021-04-22] MEDS: simethicone 80 mg Chew PO (12:43)
--- NOTE | 2021-04-22 12:43 | PC.NURSE ---
PRN MYLICON 1 CHEWABLE TABLET 80 MG GIVEN PO PER PT C/O GAS
--- NOTE | 2021-04-22 14:27 | PC.NURSE ---
pt c/o pain, refused PRN Tylenol offered, pt also refused PRN Vistaril for anxiety, pt stated I want to go back to the other floor
[2021-04-22] MEDS: ondansetron 4 MG Tablet PO (15:16)
--- NOTE | 2021-04-22 15:16 | PC.NURSE ---
Addendum entered by Mark Ortiz RN 04/22/21 16:10: No further C/O of nausea. Will continue to monitor. Original Note: Administered Zofran 4mg for PT C/O of nausea. Nurse will monitor for medication effectiveness.
[2021-04-22 15:22] LABS: Osmolality Urine 142 mOsm/kg (50-1200)
[2021-04-22 15:22] LABS: Osmolality Serum 251 mOsm/kg (278-305)
[2021-04-22] MEDS: docusate sodium 100 mg Capsule PO (17:39)
[2021-04-22] MEDS: mirtazapine 15 mg Tablet PO (20:07)
[2021-04-22] MEDS: sodium chloride 1 gm Tablet PO (20:07)
[2021-04-22] MEDS: haloperidol 5 mg Tablet PO (20:07)
[2021-04-22] MEDS: dicyclomine 20 mg Tablet PO (20:07)
[2021-04-22] MEDS: risperiDONE 1 mg Tablet 2 MG PO (20:07)
[2021-04-22] MEDS: prochlorperazine 10 mg Tablet PO (20:07)
--- NOTE | 2021-04-22 20:15 | PC.NURSE ---
pt requested pain med for back pain, norco given, pt over heard another pt request then requested same for self something for anxiety . haldol given.
[2021-04-22 22:00] VITALS: BP 117/82; PULSE 109; RESP 21; TEMP 37.1; O2SAT 96
[2021-04-22 22:17] LABS: Alanine Aminotransferase 17 U/L (0-33); Albumin Level 4.4 g/dL (3.5-5.2); Alkaline Phosphatase 90 IU/L (35-105); Anion Gap 16.1 (5-19); Aspartate Amino Transferase 33 U/L (0-32); Blood Urea Nitrogen 12 mg/dL (6-20); Calcium 9.1 mg/dL (8.5-10.5); Carbon Dioxide 21 mmol/L (22-29); Chloride 86 mmol/L (98-107); Globulin 2.4 g/dL (1.3-4.6); Glomerular Filtration Rate 90.5 mL/min (90-130); Glucose 97 mg/dL (65-115); Osmolality Calculated 248 mOsm/kg (285-295); Potassium 4.1 mmol/L (3.5-5.1); Total Bilirubin 0.4 mg/dL (0.15-1.2); Total Protein 6.8 g/dL (6.6-8.7)
[2021-04-22 22:23] LABS: Sodium 119 mmol/L (136-145)
[2021-04-22] MEDS: RISPERIDONE 1 MG 2 MG PO (22:35)
--- NOTE | 2021-04-22 22:35 | PC.NURSE ---
pt continuously requesting different medications. meds requested include: oxycotin, 200mg trazodone, fentynl. me teeth are cracked, my ribs broke, my tendons from the the bone. my herpes virus itches. pt showed staff a red raised whelp on her left upper buttock that is consistent with a mosquito bite that she has been scratching. pt was educated that she was already given the strongest pain medication that the doctor has ordered for her. pt then requested to be transferred to [facility] in [place]. pt was advised that [facility] sent her to this facility because no beds were available at their facility. then just send me to [place]. pt advised that that decision is up to the doctor. Risperdal 2mg given at this time.
--- NOTE | 2021-04-22 23:00 | PC.NURSE ---
pt noted to be up trying to mess with the thermostat in [facility], setting it to 80*. pt advised she is not to be messing with the thermostat. the temperature on thermostat was registering 71* already. pt has 4 blankets on her bed at this time.
--- NOTE | 2021-04-23 01:16 | PC.NURSE ---
called ( Hospitalist ) with critical sodium level of 119.
[2021-04-23] MEDS: docusate sodium 100 mg Capsule PO (05:43)
[2021-04-23] MEDS: nicotine 2 mg Gum BUCCAL ×5 (05:43→18:31)
[2021-04-23] MEDS: HYDROcodone-acetaminophen 5-325 mg Tablet 1 TAB PO ×2 (05:45→15:01)
[2021-04-23] MEDS: prochlorperazine 10 mg Tablet PO ×2 (08:50→20:43)
[2021-04-23] MEDS: sodium chloride 1 gm Tablet PO ×3 (08:50→16:43)
[2021-04-23] MEDS: levothyroxine 100 mcg Tablet PO (08:50)
[2021-04-23] MEDS: dicyclomine 20 mg Tablet PO (08:50)
[2021-04-23] MEDS: baclofen 10 mg Tablet PO (08:50)
[2021-04-23] MEDS: fluoxetine 10 mg Capsule PO (08:50)
[2021-04-23] MEDS: risperiDONE 1 mg Tablet 2 MG PO (08:50)
[2021-04-23] MEDS: acetaminophen 325 mg Tablet 650 MG PO (08:52)
--- NOTE | 2021-04-23 11:33 | PM.PN ---
Subjective Subjective: Interval history: Patient back in [facility]. No acute complaints. Continues to drink more water then recommended. Discussed again that it is important for patient to have fluid restriction given hyponatremia. Vitals/I&O/Wt Last Vital Signs Temp 98.7 F 04/22/21 22:00 Pulse 109 H 04/22/21 22:00 Resp 21 H 04/22/21 22:00 BP 117/82 04/22/21 22:00 Pulse Ox 96 04/22/21 22:00 Weight last 48 hrs Weight 70.579 kg Physical Exam Const: COMMON NORMALS: patient oriented x3 HENMT: COMMON NORMALS: normocephalic HEAD & SCALP: normocephalic Chest: CHEST: Yes Symmetrical chest wall rise Resp: COMMON NORMALS: clear to auscultation bilaterally EFFORT & INSPECTION: Yes symmetric chest movement AUSCULTATION: clear to auscultation bilaterally Cardio: COMMON NORMALS: regular rate, regular rhythm, S1 normal heart sound present, S2 normal heart sound present, No gallops present (Cardio), No murmurs present (Cardio), No rub (Cardio) and Peripheral pulses 2+ throughout RATE: regular rate RHYTHM: regular rhythm HEART SOUNDS: S1 normal heart sound present and S2 normal heart sound present PERIPHERAL PULSES: Peripheral pulses 2+ throughout GI: COMMON NORMALS: Normal to inspection, nondistended, normoactive bowel sounds present, Soft to palpation, non-tender, No hepatosplenomegaly present and no masses AUSCULTATION: Yes normoactive bowel sounds PALPATION: Yes Soft to palpation and Yes No hepatosplenomegaly present RECTAL EXAM: deferred Extremity: COMMON NORMALS: no clubbing, cyanosis or edema and no pedal edema Neuro: COMMON NORMALS: patient oriented x3 Data : 04/22/21 05:15 04/22/21 21:56 A&P Assessment and plan (1) Hyponatremia: Status: Acute (2) Psychotic disorder: Status: Acute Qualifiers: Psychosis type: unspecified psychosis type Qualified Code(s): F29 - Unspecified psychosis not due to a substance or known physiological condition (3) Hypertension: Status: Acute (4) Hypothyroidism: Status: Acute Additional A&P Information Hyponatremia: Euvolemic hyponatremia. Not sure what patient's baseline sodium levels are. Asymptomatic for now. Urine sodium 23 with low serum osmolality. Normal cortisol level, TSH elevated to 22. 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 Case discussed with Dr. Calvillo from psychiatry and medical reconciliation has been done accordingly. Continue with salt tablets 1 mg p.o. 3 times a day with meals Fluid restriction up to 1500 cc. Check CMP daily for now. Hypothyroidism: Most likely euthymic hypothyroidism/subclinical hypothyroidism. Free T3 and free T4 within normal limits. Patient does not have any other symptoms of severe hypothyroidism. For now continue home dose of levothyroxine. Cortisol levels within normal limits. Hypertension: Goal blood pressure less than 140/90 mmHg. Stop lisinopril and spironolactone for now. We will continue to monitor and start treatment accordingly. Psychotic disorder: Treatment as per psychiatric team. Full code. Regular diet. SCDs for DVT prophylaxis. As you are not aware of baseline sodium levels and patient is asymptomatic. Patient is stable from medicine point of view to be discharged on oral salt tablets 3 times a day with meals and advised of fluid restriction up to 1500 cc/day. Patient should also be advised to follow-up with a primary care provider within next 1 week for repeat CMP. Attestations Medical Necessity Statement*: As per primary team Time Spent in Patient Care: Greater than 35 minutes (>than 50% of time spent in counselling and/or direct pt care on unit). Coding Level of Care Code Acute Administration Assistant for [employer] Fwd Exam Detailed Diagnoses Hyponatremia E87.1 Psychotic disorder F29 Psychosis type: unspecified psychosis type Hypertension I10 Hypothyroidism E03.9
--- NOTE | 2021-04-23 13:15 | PC.NURSE ---
pt has been intrusive, demanding of needs, requesting to be transferred to [facility] in [place]. pt educated on her treatment plan here & reminded that she does not have discharge orders for today. pt has been med compliant today but has somatic complaints & requesting any and all PRN medications she can have. staff will continue to monitor & redirect pt as needed
[2021-04-23 14:00] VITALS: BP 96/69; PULSE 110; RESP 17; TEMP 36.7; O2SAT 96
--- NOTE | 2021-04-23 14:10 | PC.NUTR ---
Nutrition reassessment: 27 lb weight gain noted since admission. Have contacted NPU staff to request re-weight when possible. See RD assessment for further details.
[2021-04-23] MEDS: LIPASE PROTEASE AMYLASE 1 EACH PO ×2 (16:43→20:48)
[2021-04-23] MEDS: mirtazapine 15 mg Tablet PO (20:43)
[2021-04-23] MEDS: risperiDONE 2 mg Tablet 4 MG PO (20:43)
[2021-04-23 21:17] VITALS: BP 98/62; PULSE 106; RESP 17; TEMP 36.5; O2SAT 97
[2021-04-24] MEDS: levothyroxine 100 mcg Tablet PO (05:49)
[2021-04-24 06:00] VITALS: BP 99/71; PULSE 133; RESP 16; TEMP 37.2; O2SAT 95
[2021-04-24 06:55] LABS: Alanine Aminotransferase 16 U/L (0-33); Albumin Level 4.2 g/dL (3.5-5.2); Alkaline Phosphatase 79 IU/L (35-105); Anion Gap 15.2 (5-19); Aspartate Amino Transferase 22 U/L (0-32); Blood Urea Nitrogen 9 mg/dL (6-20); Calcium 8.3 mg/dL (8.5-10.5); Carbon Dioxide 23 mmol/L (22-29); Chloride 98 mmol/L (98-107); Globulin 2.2 g/dL (1.3-4.6); Glomerular Filtration Rate 108.1 mL/min (90-130); Glucose 136 mg/dL (65-115); Osmolality Calculated 275 mOsm/kg (285-295); Potassium 4.2 mmol/L (3.5-5.1); Sodium 132 mmol/L (136-145); Total Bilirubin 0.2 mg/dL (0.15-1.2); Total Protein 6.4 g/dL (6.6-8.7)
[2021-04-24] MEDS: LIPASE PROTEASE AMYLASE 1 EACH PO ×2 (07:46→11:39)
[2021-04-24] MEDS: nicotine 21 mg Patch 1 PATCH TRANSDERMA (07:46)
[2021-04-24] MEDS: sodium chloride 1 gm Tablet PO ×2 (08:41→12:20)
[2021-04-24] MEDS: RISPERIDONE 1 MG 2 MG PO (08:41)
[2021-04-24] MEDS: fluoxetine 10 mg Capsule PO (08:42)
[2021-04-24] MEDS: prochlorperazine 10 mg Tablet PO (09:02)
[2021-04-24] MEDS: dicyclomine 20 mg Tablet PO (09:02)
[2021-04-24] MEDS: baclofen 10 mg Tablet PO (09:03)
[2021-04-24] MEDS: pantoprazole DR 40 mg Tablet PO (09:03)
[2021-04-24] MEDS: risperiDONE 1 mg Tablet 2 MG PO (10:13)
[2021-04-24] MEDS: hyDROXYzine 25 mg Capsule 50 MG PO (10:20)
[2021-04-24] MEDS: HYDROcodone-acetaminophen 5-325 mg Tablet 1 TAB PO (10:20)
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
[2021-04-24 13:35] VITALS: BP 99/71; PULSE 133; RESP 16; TEMP 37.2; O2SAT 95
[2021-04-24] MEDS: nicotine 2 mg Gum BUCCAL (14:11)
--- NOTE | 2021-04-24 14:49 | PC.NURSE ---
prn for pain 1020 administered [employer] 5-325mg for pt c/o pain 8/10 in back. will monitor pt until end of my shift. 1055 reassessed pain level, pt reports 4/10 which has lowered, will continue to monitor this pt.
[2021-04-24] MEDS: docusate sodium 100 mg Capsule PO (15:16)
== END 2021-04-24 15:35 | disposition home or self-care (01) | DRG 885 ==
LOC: NP 04-21 16:33 → MEDSURG 04-22 00:26 → NP 04-22 10:37
PROVIDERS: Internal Medicine; Student in an Organized Health Care Education/Training Program; Admitting Provider Psychiatry & Neurology Psychiatry; Visit Provider Psychiatry & Neurology Psychiatry
DX: F29 Unspecified psychosis not due to a substance or known physiological condition (principal); K86.1 Other chronic pancreatitis; E22.2 Syndrome of inappropriate secretion of antidiuretic hormone; E03.9 Hypothyroidism, unspecified; I10 Essential (primary) hypertension
CPT/HCPCS: 36415; 80048; 80053; 80061; 81003; 82533; 83036; 83930; 83935; 84300; 84439; 84443; 84481; 85025; 96372; J1200; J1630; J2060; Q0162; Q0164